=== PATIENT | male | born 1990 | race Caucasian/White ===

== ENCOUNTER 2024-09-16 16:39 | Emergency (ER) | payer OTHER ==
[~2024-09-16] VITALS: Ht 177.8 cm; Wt 105.0 kg
[2024-09-16] MEDS: ONDANSETRON 4MG ORAL DISINTEGRATING TAB PO ONE (16:55)
[2024-09-16] MEDS ORDERED: APAP325T4 PO (16:58)
[2024-09-16] MEDS: IBUPROFEN 800 MG TAB PO ONE (17:07)
[2024-09-16 18:09] VITALS: BP 122/68; TEMP 101.4; O2SAT 95
[2024-09-16] MEDS ORDERED: BENZ200C70 PO (18:53)
== END 2024-09-16 19:00 | disposition home or self-care (01) ==
LOC: M ED 16:39
DX: J09.X2 Influenza due to identified novel influenza A virus with other respiratory manifestations (principal); Z79.1 Long term (current) use of non-steroidal anti-inflammatories (NSAID); Z79.899 Other long term (current) drug therapy

== ENCOUNTER 2025-03-29 08:12 | Emergency (ER) | payer OTHER ==
[~2025-03-29] VITALS: Ht 177.8 cm; Wt 103.4 kg
[~2025-03-29 08:12] MED LIST: APAP325T4 PO; BENZ200C70 PO
[2025-03-29] MEDS: KETOROLAC 30 MG/ML 1 ML VIAL IM ONE (10:38)
[2025-03-29 12:22] VITALS: BP 115/71; TEMP 97.3; O2SAT 99
== END 2025-03-29 12:25 | disposition home or self-care (01) ==
LOC: M ED 08:12
DX: S46.212A Strain of muscle, fascia and tendon of other parts of biceps, left arm, initial encounter (principal); Y92.89 Other specified places as the place of occurrence of the external cause; Y93.B9 Activity, other involving muscle strengthening exercises; Y99.9 Unspecified external cause status; Z79.1 Long term (current) use of non-steroidal anti-inflammatories (NSAID); Z79.899 Other long term (current) drug therapy
CPT/HCPCS: 76882; 96372; 99284; J1885

== ENCOUNTER → 2025-05-08 | Outpatient (CLI) | payer OTHER | LOC: M PLAIMG 07:20 | PROVIDERS: ATTEND Physician Assistant | DX: S46.212S Strain of muscle, fascia and tendon of other parts of biceps, left arm, sequela (principal) ==